=== PATIENT | male | born 1945 | race Caucasian/White ===

== ENCOUNTER 2017-07-18 11:16 | Day surgery (SDC) | payer MEDICARE, BC ==
[2017-07-18 12:39] LABS: BASOPHILS 0.3 % (0-2); EOSINOPHILS 4.7 % (0-7); HEMATOCRIT 38.7 % (42.0-54.0); HEMOGLOBIN 13.7 g/dL (13.5-17.5); LYMPHOCYTES 29.7 % (15-50); MCH 33.2 pg (26.0-34.0); MCHC 35.4 g/dL (31.0-37.0); MCV 93.7 fL (80.0-100.0); MEAN PLATELET VOLUME 9.6 fL (7.4-10.4); MONOCYTES 11.3 % (2-11); PLATELET COUNT 71 10x3/uL (130-400); RBC 4.13 10x6/uL (4.20-6.10); RDW 12.8 % (11.5-14.5); WBC 3.4 10x3/uL (4.8-10.8)
[2017-07-18 12:51] LABS: APTT 28.4 SECONDS (22.8-39.4)
[2017-07-18 12:53] LABS: INR 1.05 (0.85-1.17); PROTIME 13.5 SECONDS (11.6-15.0)
[2017-07-18 13:00] LABS: PLATELET ESTIMATE DECREASED
[2017-07-18 13:03] LABS: CALC OSMOLALITY 279 mosm/kg (275-300); CALCIUM 8.7 mg/dL (8.5-10.1); CARBON DIOXIDE 25.8 mmol/L (21.0-32.0); CHLORIDE - SERUM 102 mmol/L (98-107); CREATININE - SERUM 0.7 mg/dL (0.6-1.3); GLUCOSE 214 mg/dL (74-106); POTASSIUM - SERUM 3.8 mmol/L (3.5-5.1); SODIUM 137 mmol/L (136-145); UREA NITROGEN 13 mg/dL (7-18); eGFR NON AFRICAN AMERICAN > 90 mL/min (90-120)
[2017-07-18] MEDS ORDERED: GLUCOPHAGE1000 MG PO (14:18)
[2017-07-18] MEDS ORDERED: PROTONIX40 MG PO (14:19)
[2017-07-18] MEDS ORDERED: CELEXA40 MG PO (14:19)
[2017-07-18] MEDS ORDERED: JANUVIA100 MG PO (14:20)
[2017-07-18] MEDS ORDERED: ARICEPT5 MG PO (14:20)
[2017-07-18] MEDS ORDERED: COREG12.5 MG PO (14:20)
[2017-07-18 14:32] VITALS: BP 133/79; BMI 28.7
--- NOTE | 2017-07-18 17:23 | NUR ---
1720 DISCHARGE INSTRUCTIONS COMPLETE. WENT OVER STRICT DIET FOR NEXT 4 DAYS. NO PRESSCRIPTION GIVEN. PT ESCORTED OUT BY SOPHY DOMINIQUE.
--- NOTE | 2017-07-27 14:40 | OP ---
PATIENT NAME: ZAYNAB COVARRUBIAS MEDICAL RECORD: [id number] :46 [facility] DATE: SURGEON: PIERRE BARNHART DO DATE OF OPERATION: 07/18/2017 PROCEDURES: EGD with biopsies and variceal banding. INDICATIONS FOR PROCEDURE: Cirrhosis. SCOPE: Olympus video gastroscope. MEDICATIONS: Propofol 450 mg IV per anesthesia. ESTIMATED BLOOD LOSS: Minimal. COMPLICATIONS: None. FINDINGS: Informed consent was given. The patient was made comfortable with the above medication. After reaching an adequate level of sedation by slow IV push, the patient was placed on his left side. The endoscope was then advanced under direct visualization through the mouth to the second portion of the duodenum. In the middle and distal esophagus, there was evidence of grade III esophageal varices without bleeding stigmata. At the GE junction, there was some evidence of some reflux esophagitis without bleeding or ulcerations. The endoscope was advanced beyond the GE junction into the stomach and retroflexed to view the cardia which appeared normal. Throughout the entire stomach, there was diffuse portal hypertensive gastropathy of a moderate degree. There was some granularity and erythema throughout the entire stomach consistent with possible gastritis. A single biopsy was taken to submit for histology and to look for H. pylori. The endoscope was advanced beyond the pylorus into the duodenum where there was some evidence of portal hypertensive duodenopathy and duodenitis. The endoscope was removed from the patient and fitted with a banding device to band the esophageal varices. It was placed back through the mouth under direct visualization and advanced down to the GE junction. Three bands were placed in total over segment of varices successfully. The endoscope was then withdrawn from the patient. The patient tolerated the procedure well and there were no complications. IMPRESSION: 1. Grade III esophageal varices without bleeding stigmata, status post banding times 3. 2. Esophagitis involving the gastroesophageal junction. 3. Portal hypertensive gastropathy. 4. Gastritis. 5. Portal hypertensive duodenopathy and duodenitis. PLAN AND RECOMMENDATIONS: 1. Discharge home when recovery parameters are met. 2. Follow up biopsy specimen results. 3. Change diet to liquids times 48 hours followed by soft diet times 48 hours followed by regular diet thereafter. 4. Continue current medications including Protonix 40 mg daily. 5. Repeat upper endoscopy in 4 weeks for repeat banding if indicated. TRANSINT:[id number] Voice Confirmation ID: [id number] DOCUMENT ID: [id number] OPERATIVE REPORT [id number] ZAYNAB COVARRUBIAS NATHAN A DO at 1440 CC: [id number] DICTATION DATE: 07/18/17 162 RN CLINICAL DOCUMENTATION SPECIALIST: 07/18/171929 [facility] 07/18/[address] [facility] [address] [place] [id number]
== END 2017-07-18 17:20 | disposition home or self-care (01) ==
LOC: D.OPS 11:16 → D.LAB 11:16 → D.OPS 17:20
PROVIDERS: Anesthesiology
DX: K74.60 Unspecified cirrhosis of liver (principal); I85.10 Secondary esophageal varices without bleeding; K20.9 Esophagitis, unspecified; K29.70 Gastritis, unspecified, without bleeding; K76.6 Portal hypertension; K31.89 Other diseases of stomach and duodenum; Z01.812 Encounter for preprocedural laboratory examination

== ENCOUNTER → 2017-08-16 09:58 | Outpatient (CLI) | payer MEDICARE, BC ==
[2017-07-18 14:32] VITALS: BMI 28.7
[~2017-08-16 09:58] MED LIST: ARICEPT5 MG PO; CELEXA40 MG PO; COREG12.5 MG PO; FLUTICASONE PRO16 GM NASAL; GLUCOPHAGE1000 MG PO; JANUVIA100 MG PO; PROTONIX40 MG PO
[2017-08-16 11:16] LABS: % SATURATION 24 % (15-55); IRON 94 ug/dl (35-150); TOTAL IRON BIND CAPACITY 391 ug/dl (260-445); UNSAT IRON BIND CAPACITY 297 ug/dl (150-375)
[2017-08-16 11:25] LABS: ALBUMIN 3.7 g/dL (3.4-5.0); BILIRUBIN - DIRECT 0.38 mg/dL (0.00-0.30); BILIRUBIN - INDIRECT 1.35 mg/dL (0.00-1.00); BILIRUBIN - TOTAL 1.73 mg/dL (0.2-1.3); CHOL - HDL RATIO 3.6 ratio (2.3-4.9); LDL-HDL RATIO 2.1 ratio (1.5-3.5); PROTEIN - SERUM 7.2 g/dL (6.4-8.2)
[2017-08-17 08:20] LABS: FOLATE (FOLIC ACID) - SERUM 17.4 ng/mL (>3.0)
[2017-08-17 11:19] LABS: HAPTOGLOBIN 89 mg/dL (34-200)
[2017-08-17 11:19] LABS: HEPATITIS C ANTIBODY 0.2 (0.0-0.9)
[2017-08-17 13:18] LABS: ALPHA FETOPROTEIN -(TUMOR MRK) 5.6 ng/mL (0.0-8.3); ANA REFLEX - DIRECT Negative (Negative)
[2017-08-18 14:21] LABS: MITOCHONDRIAL ANTIBODY 5.4 Units (0.0-20.0); SMOOTH MUSCLE ABS (ACTIN) 6 Units (0-19)
== END | disposition home or self-care (01) ==
LOC: D.LAB 08:15
PROVIDERS: Internal Medicine Gastroenterology
DX: K74.60 Unspecified cirrhosis of liver (principal); R16.1 Splenomegaly, not elsewhere classified; D69.6 Thrombocytopenia, unspecified

== ENCOUNTER 2017-09-05 08:22 | Day surgery (SDC) | payer MEDICARE, BC ==
[~2017-09-05] VITALS: Ht 177.8 cm; Wt 90.9 kg
[~2017-09-05 08:22] MED LIST changes: -FLUTICASONE PRO16 GM NASAL
[2017-09-05] MEDS ORDERED: FLUTICASONE PRO16 GM NASAL (09:17)
[2017-09-05 09:22] LABS: BASOPHILS 0 % (0-2); EOSINOPHILS 4.8 % (0-7); HEMATOCRIT 40.4 % (42.0-54.0); HEMOGLOBIN 13.9 g/dL (13.5-17.5); LYMPHOCYTES 23.5 % (15-50); MCH 32.7 pg (26.0-34.0); MCHC 34.4 g/dL (31.0-37.0); MCV 95.1 fL (80.0-100.0); MEAN PLATELET VOLUME 9.3 fL (7.4-10.4); MONOCYTES 15.4 % (2-11); NEUTROPHILS 56.3 % (40-80); PLATELET COUNT 67 10x3/uL (130-400); RBC 4.25 10x6/uL (4.20-6.10); RDW 12.9 % (11.5-14.5); WBC 2.7 10x3/uL (4.8-10.8)
[2017-09-05 09:24] VITALS: BP 127/75; Ht 177.8 cm; Wt 90.9 kg
[2017-09-05 09:42] LABS: CALC OSMOLALITY 279 mosm/kg (275-300); CARBON DIOXIDE 24.7 mmol/L (21.0-32.0); CHLORIDE - SERUM 102 mmol/L (98-107); CREATININE - SERUM 0.8 mg/dL (0.6-1.3); GLUCOSE 269 mg/dL (74-106); POTASSIUM - SERUM 3.8 mmol/L (3.5-5.1); SODIUM 136 mmol/L (136-145); UREA NITROGEN 11 mg/dL (7-18); eGFR NON AFRICAN AMERICAN > 90 mL/min (90-120)
--- NOTE | 2017-09-05 16:47 | NUR ---
1145-RECD FROM GI LAB. ALERT. IV PATENT. RESP WITH EASE 1200-FULL LIQUIDS SERVED. DR BARNHART IN TO SEE PATIENT AND REPORT FINDINGS. 1245-IV D/C. DRESSED. DISCHARGE INSTRUCTIONS REVIEWED. 1300-D/C VIA WHEELCHAIR WITH OVEN TECHNICIAN.
--- NOTE | 2017-09-06 11:02 | OP ---
PATIENT NAME: ZAYNAB COVARRUBIAS MEDICAL RECORD: [id number] :46 LOCATION:D.[facility] ADMISSION DATE: SURGEON: PIERRE BARNHART DO DATE OF OPERATION: 09/05/2017 PROCEDURE: EGD. INDICATION FOR PROCEDURE: Surveillance of esophageal varices. SCOPE: Olympus video gastroscope. MEDICATIONS: Propofol given per anesthesia. ESTIMATED BLOOD LOSS: None. COMPLICATIONS: None. FINDINGS: Informed consent was given. The patient was made comfortable with the above medication. After reaching an adequate level of sedation by slow IV push, the patient was placed on his left side. The endoscope was then advanced under direct visualization through the mouth to the second portion of the duodenum. In the esophagus, there was evidence of grade II to grade III esophageal varices without bleeding stigmata. Sites of previous banding were identified. The vessels appeared more decompressed than his last EGD on July 18 where 3 bands were placed. It was determined based on the size and the appearance of the current varices that no bands would be placed today. At the GE junction, there was mild evidence of LA class A reflux-induced esophagitis. The endoscope was advanced beyond the GE junction and retroflexed to view the fundus and cardia. There were no obvious gastric varices present. Throughout the entire stomach and small bowel, there was extensive lvecxhit-tw-hgojji portal hypertensive gastropathy and duodenopathy. There were no ulcers or other abnormalities visualized. The endoscope was withdrawn from the patient. The patient tolerated the procedure well and there were no complications. IMPRESSION: 1. Grade II to grade III esophageal varices without bleeding stigmata. No bands placed on today's examination. 2. LA class A reflux-induced esophagitis. 2. Portal hypertensive gastropathy. 3. Portal hypertensive duodenopathy. PLAN AND RECOMMENDATIONS: 1. Discharge home when recovery parameters are met. 2. Continue current diet. 3. Continue current medications. 4. Recall upper endoscopy in one year for continued surveillance of esophageal varices. TRANSINT:[id number] Voice Confirmation ID: [id number] DOCUMENT ID: [id number] OPERATIVE REPORT [id number] ZAYNAB COVARRUBIAS PIERRE BARNHART DO at 1102 CC: [id number] DICTATION DATE: 09/05/17 112 [place] TECHNICIAN: 09/05/17 1256 [facility] 09/05/17 [facility] [address] [place] [address]
== END 2017-09-05 13:00 | disposition home or self-care (01) ==
LOC: D.OPS 08:22
PROVIDERS: Anesthesiology
DX: I85.00 Esophageal varices without bleeding (principal); K21.9 Gastro-esophageal reflux disease without esophagitis; I10 Essential (primary) hypertension; E11.9 Type 2 diabetes mellitus without complications; G47.30 Sleep apnea, unspecified; Z01.812 Encounter for preprocedural laboratory examination

== ENCOUNTER → 2017-10-13 08:37 | Outpatient (CLI) | payer MEDICARE, BC ==
[2017-09-05 09:24] VITALS: BMI 28.7
[~2017-10-13 08:37] MED LIST changes: +FLUTICASONE PRO16 GM NASAL
[2017-10-13 09:45] LABS: ALBUMIN 3.4 g/dL (3.4-5.0); BILIRUBIN - DIRECT 0.31 mg/dL (0.00-0.30); BILIRUBIN - INDIRECT 0.87 mg/dL (0.00-1.00); BILIRUBIN - TOTAL 1.18 mg/dL (0.2-1.3)
[2017-10-13 09:56] LABS: BASOPHILS 0.5 % (0-2); EOSINOPHILS 7.3 % (0-7); HEMOGLOBIN 13.3 g/dL (13.5-17.5); IMMATURE GRANULOCYTES 0.3 % (0-5); LYMPHOCYTES 22.8 % (15-50); MCH 32.9 pg (26.0-34.0); MCV 94.1 fL (80.0-100.0); MEAN PLATELET VOLUME 9.6 fL (7.4-10.4); MONOCYTES 10.1 % (2-11); RBC 4.04 10x6/uL (4.20-6.10); WBC 3.9 10x3/uL (4.8-10.8)
[2017-10-13 10:29] LABS: PLATELET COUNT 84 10x3/uL (130-400)
[2017-10-13 10:44] LABS: PLATELET ESTIMATE NORMAL; PLATELET MORPHOLOGY NORMAL PLT MORPH
== END | disposition home or self-care (01) ==
LOC: D.US 08:37
PROVIDERS: Internal Medicine Gastroenterology
DX: K74.60 Unspecified cirrhosis of liver (principal); R16.1 Splenomegaly, not elsewhere classified; D69.6 Thrombocytopenia, unspecified

== ENCOUNTER → 2018-03-14 08:41 | Outpatient (CLI) | payer MEDICARE, BC ==
[2017-09-05 09:24] VITALS: BMI 28.7
[2018-03-14 09:30] LABS: BASOPHILS 0.3 % (0-2); EOSINOPHILS 2.9 % (0-7); HEMOGLOBIN 13.1 g/dL (13.5-17.5); IMMATURE GRANULOCYTES 0.3 % (0-5); LYMPHOCYTES 19.6 % (15-50); MCH 32.8 pg (26.0-34.0); MCHC 34.5 g/dL (31.0-37.0); MCV 95.2 fL (80.0-100.0); MEAN PLATELET VOLUME 9.3 fL (7.4-10.4); MONOCYTES 11.8 % (2-11); NEUTROPHILS 65.1 % (40-80); RBC 3.99 10x6/uL (4.20-6.10); RDW 12.9 % (11.5-14.5); WBC 3.8 10x3/uL (4.8-10.8)
[2018-03-14 09:33] LABS: PLATELET COUNT 65 10x3/uL (130-400)
[2018-03-14 09:44] LABS: ALBUMIN 3.3 g/dL (3.4-5.0); BILIRUBIN - DIRECT 0.39 mg/dL (0.00-0.30); BILIRUBIN - INDIRECT 1.68 mg/dL (0.00-1.00); BILIRUBIN - TOTAL 2.07 mg/dL (0.2-1.3); PROTEIN - SERUM 6.9 g/dL (6.4-8.2)
== END | disposition home or self-care (01) ==
LOC: D.US 08:41
PROVIDERS: Internal Medicine Gastroenterology
DX: K74.60 Unspecified cirrhosis of liver (principal); D69.6 Thrombocytopenia, unspecified

== ENCOUNTER → 2018-04-14 09:03 | Outpatient (CLI) | payer MEDICARE, BC ==
[2017-09-05 09:24] VITALS: BMI 28.7
== END | disposition home or self-care (01) ==
LOC: D.LAB 04-11 14:00
DX: K74.60 Unspecified cirrhosis of liver (principal); E72.20 Disorder of urea cycle metabolism, unspecified; I85.00 Esophageal varices without bleeding; L29.9 Pruritus, unspecified

== ENCOUNTER → 2018-09-18 08:36 | Outpatient (CLI) | payer MEDICARE, BC ==
[2017-09-05 09:24] VITALS: BMI 28.7
[2018-09-18 09:47] LABS: BASOPHILS 0.3 % (0-2); EOSINOPHILS 5.2 % (0-7); HEMATOCRIT 39.7 % (42.0-54.0); HEMOGLOBIN 13.7 g/dL (13.5-17.5); IMMATURE GRANULOCYTES 0.3 % (0-5); LYMPHOCYTES 25.6 % (15-50); MCH 32.8 pg (26.0-34.0); MCHC 34.5 g/dL (31.0-37.0); MEAN PLATELET VOLUME 9.1 fL (7.4-10.4); MONOCYTES 10.8 % (2-11); NEUTROPHILS 57.8 % (40-80); PLATELET COUNT 78 10x3/uL (130-400); RBC 4.18 10x6/uL (4.20-6.10); RDW 13.2 % (11.5-14.5); WBC 3.4 10x3/uL (4.8-10.8)
[2018-09-18 10:02] LABS: ALBUMIN 3.6 g/dL (3.4-5.0); BILIRUBIN - DIRECT 0.37 mg/dL (0.00-0.30); BILIRUBIN - INDIRECT 1.59 mg/dL (0.00-1.00); BILIRUBIN - TOTAL 1.96 mg/dL (0.2-1.3); PROTEIN - SERUM 7.7 g/dL (6.4-8.2)
== END | disposition home or self-care (01) ==
LOC: D.US 08:30
PROVIDERS: Internal Medicine Gastroenterology
DX: K74.60 Unspecified cirrhosis of liver (principal); E72.20 Disorder of urea cycle metabolism, unspecified; I85.00 Esophageal varices without bleeding; L29.9 Pruritus, unspecified

== ENCOUNTER 2018-09-25 09:44 | Day surgery (SDC) | payer MEDICARE, BC ==
[~2018-09-25] VITALS: Ht 180.3 cm; Wt 88.2 kg
--- NOTE | ~2018-09-25 | OP ---
PATIENT NAME: ZAYNAB COVARRUBIAS MEDICAL RECORD: [id number] :46 [facility]: SURGEON: PIERRE BARNHART DO DATE OF OPERATION: 09/25/2018 PROCEDURE: EGD with biopsies and variceal ligation. SCOPE: Olympus video gastroscope. MEDICATIONS: Propofol 450 mg IV per anesthesia. ESTIMATED BLOOD LOSS: Minimal. COMPLICATIONS: None. FINDINGS: Informed consent was given. The patient was made comfortable with the above medication. After reaching an adequate level of sedation by slow IV push, the patient was placed on his left side. The endoscope was advanced under direct visualization through the mouth to the second portion of the duodenum. In the esophagus, there was evidence of grade II to grade III esophageal varices beginning with the middle third of the esophagus down to the distal third and GE junction. At the GE junction, there was some mild reflux changes, but this was not severe. The endoscope was advanced beyond the GE junction into the stomach and retroflexed to view the cardia, which appeared normal. Throughout the fundus and body of the stomach, there was diffuse severe portal hypertensive gastropathy. There was no active bleeding or lesions. In the antrum and prepyloric region, there was granularity and erythema consistent with gastritis. There was also a single gastric ulcer located in the prepyloric region. Random cold forceps biopsies were taken from both the antrum and the proximal body where the gastropathy was located. The specimens will be submitted for histopathology and to rule out the presence of H. pylori. The endoscope was advanced beyond the pylorus into the duodenum. The duodenum appeared normal down to the second portion. The endoscope was then withdrawn from the patient. The patient tolerated the procedure well and there were no complications. IMPRESSION: 1. Grade II to grade III esophageal varices without bleeding stigmata. Two bands were placed on these varices using the [employer] quick plate painter apprentice. 2. Portal hypertensive gastropathy in a diffuse pattern in the fundus and proximal stomach. 3. Gastritis. 4. Peptic ulcer disease/gastric ulcer. PLAN AND RECOMMENDATIONS: 1. Discharge home when recovery parameters are met. 2. Follow up biopsy specimen results. 3. Continue current diet. 4. Continue current medications. 5. A prescription will be provided for omeprazole 40 mg daily. 6. Repeat EGD in 4 weeks for continued banding of esophageal varices until eradication. TRANSINT:[id number] Voice Confirmation ID: [id number] DOCUMENT ID: [id number] OPERATIVE REPORT [id number] ZAYNAB COVARRUBIAS,PIERRE Arevalo DO at 1554 CC: [id number] DICTATION DATE: 09/25/181216 HEEL CUTTER: 09/25/18 1315 [facility] 09/25/18 [place] [id number]
[2018-09-25 11:05] VITALS: Ht 180.3 cm; Wt 88.2 kg
[2018-09-25] MEDS ORDERED: XIFAXAN550 MG PO (11:09)
[2018-09-25] MEDS ORDERED: RAZADYNE ER8 MG PO (11:10)
[2018-09-25] MEDS ORDERED: VITAMIN D31000 UNIT PO (11:11)
[2018-09-25] MEDS ORDERED: VITAMIN B-121000 MCG PO (11:11)
[2018-09-25] MEDS ORDERED: ATARAX 25 MG TA25 MG PO (11:12)
[2018-09-25] MEDS ORDERED: MOBIC7.5 MG PO (11:12)
[2018-09-25] MEDS ORDERED: IBUPROFEN200 MG PO (11:13)
[2018-09-25] MEDS ORDERED: IMODIUM2 MG PO (11:14)
[2018-09-25 11:45] LABS: HEMATOCRIT 39.2 % (42.0-54.0); HEMOGLOBIN 13.7 g/dL (13.5-17.5); MCH 33.1 pg (26.0-34.0); MCHC 34.9 g/dL (31.0-37.0); MCV 94.7 fL (80.0-100.0); MEAN PLATELET VOLUME 9.6 fL (7.4-10.4); PLATELET COUNT 82 10x3/uL (130-400); RBC 4.14 10x6/uL (4.20-6.10); RDW 13.1 % (11.5-14.5); WBC 3.5 10x3/uL (4.8-10.8)
[2018-09-25 11:48] LABS: CALC OSMOLALITY 280 mosm/kg (275-300); CALCIUM 9.2 mg/dL (8.5-10.1); CARBON DIOXIDE 29.6 mmol/L (21.0-32.0); CHLORIDE - SERUM 100 mmol/L (98-107); CREATININE - SERUM 0.7 mg/dL (0.6-1.3); POTASSIUM - SERUM 4.1 mmol/L (3.5-5.1); SODIUM 137 mmol/L (136-145); UREA NITROGEN 15 mg/dL (7-18); eGFR NON AFRICAN AMERICAN > 90 mL/min (90-120)
[2018-09-25 11:49] LABS: GLUCOSE 215 mg/dL (74-106)
[2018-09-25 12:18] LABS: PLATELET ESTIMATE DECREASED
== END 2018-09-25 13:19 | disposition home or self-care (01) ==
LOC: D.OPS 09:44
PROVIDERS: Anesthesiology
DX: I85.00 Esophageal varices without bleeding (principal); K76.6 Portal hypertension; K31.89 Other diseases of stomach and duodenum; K25.9 Gastric ulcer, unspecified as acute or chronic, without hemorrhage or perforation; Z01.812 Encounter for preprocedural laboratory examination

== ENCOUNTER → 2018-11-29 14:39 | Outpatient (CLI) | payer MEDICARE, BC ==
[2018-09-25 11:05] VITALS: BMI 27.1
[~2018-11-29 14:39] MED LIST changes: +ATARAX 25 MG TA25 MG PO; +GLUCOTROL XL 1010 MG PO; +IBUPROFEN200 MG PO; +IMODIUM2 MG PO; +MOBIC7.5 MG PO; +RAZADYNE ER8 MG PO; +VITAMIN B-121000 MCG PO; +VITAMIN D31000 UNIT PO; +XIFAXAN550 MG PO
== END | disposition home or self-care (01) ==
LOC: D.LAB 08:00
DX: I85.00 Esophageal varices without bleeding (principal); L29.9 Pruritus, unspecified; K74.60 Unspecified cirrhosis of liver

== ENCOUNTER 2018-12-06 05:58 | Day surgery (SDC) | payer MEDICARE, BC ==
[2018-11-29 15:16] LABS: BASOPHILS 0.3 % (0-2); HEMATOCRIT 37.7 % (42.0-54.0); IMMATURE GRANULOCYTES 0.3 % (0-5); LYMPHOCYTES 26.6 % (15-50); MCH 31.9 pg (26.0-34.0); MCHC 34.5 g/dL (31.0-37.0); MCV 92.4 fL (80.0-100.0); MEAN PLATELET VOLUME 9.6 fL (7.4-10.4); MONOCYTES 10.2 % (2-11); NEUTROPHILS 58.6 % (40-80); PLATELET COUNT 70 10x3/uL (130-400); RBC 4.08 10x6/uL (4.20-6.10); RDW 13.4 % (11.5-14.5); WBC 3.2 10x3/uL (4.8-10.8)
[2018-11-29 15:41] LABS: PLATELET ESTIMATE DECREASED
[~2018-12-06] VITALS: Ht 177.8 cm; Wt 90.0 kg
--- NOTE | ~2018-12-06 | OP ---
PATIENT NAME: ZAYNAB COVARRUBIAS MEDICAL RECORD: [id number] :46 LOCATION:D.OPS ADMISSION DATE: SURGEON: PIERRE BARNHART DO DATE OF OPERATION: 12/06/2018 PROCEDURE: EGD with variceal band ligation times 2. The patient's last variceal banding took place on 09/25/2018. SCOPE: Olympus video gastroscope. MEDICATIONS: Propofol 220 mg IV per anesthesia. ESTIMATED BLOOD LOSS: Minimal. COMPLICATIONS: None. FINDINGS: Informed consent was given. The patient was made comfortable with the above medication. After reaching an adequate level of sedation by slow IV push, the patient was placed on his left side. The endoscope was advanced under direct visualization through the mouth to the second portion of the duodenum with ease. The upper third of the esophagus appeared normal. In the middle and distal thirds of the esophagus, there were grade II to grade III esophageal varices without bleeding stigmata. Using a [employer] speed resource technician, 2 of these varices were ligated at the 5 o'clock and 7 o'clock position successfully. At the GE junction, there was evidence of LA class A reflux-induced esophagitis. The endoscope was advanced beyond the GE junction in the stomach and retroflexed to view the cardia and fundus. There was no hiatal hernia appreciated. The endoscope was advanced down into the body and antrum of the stomach. There was diffuse moderate to severe portal hypertensive gastropathy present. There was no bleeding in the stomach. The previously identified ulcers have resolved and are no longer present. The endoscope was advanced beyond the pylorus into the duodenum. The entire examined duodenum appeared normal. The endoscope was withdrawn from the patient. The patient tolerated the procedure well and there were no complications. IMPRESSION: 1. Grade II to grade III esophageal varices without bleeding stigmata, banded times 2. 2. LA class A reflux-induced esophagitis. 3. Moderate to severe portal hypertensive gastropathy. PLAN AND RECOMMENDATIONS: 1. Discharge home when recovery parameters are met. 2. Continue current diet. 3. Continue current medications. 4. Recall EGD in approximately 4 weeks for further banding as indicated of esophageal varices. TRANSINT:[id number] Voice Confirmation ID: [id number] DOCUMENT ID: [id number] OPERATIVE REPORT [id number] ZAYNAB COVARRUBIASPIERRE JACKSON DO CC: [id number] DICTATION DATE: 12/06/18802 SLEEVE MACHINE TENDER: 12/06/18823 [facility] [address] [place] [address]
[~2018-12-06 05:58] MED LIST changes: -GLUCOTROL XL 1010 MG PO
[2018-12-06 06:41] LABS: CALC OSMOLALITY 288 mosm/kg (275-300); CARBON DIOXIDE 23.9 mmol/L (21.0-32.0); CHLORIDE - SERUM 104 mmol/L (98-107); CREATININE - SERUM 0.8 mg/dL (0.6-1.3); GLUCOSE 178 mg/dL (74-106); POTASSIUM - SERUM 4.2 mmol/L (3.5-5.1); SODIUM 141 mmol/L (136-145); UREA NITROGEN 23 mg/dL (7-18); eGFR NON AFRICAN AMERICAN > 90 mL/min (90-120)
[2018-12-06] MEDS ORDERED: GLUCOTROL XL 1010 MG PO (06:45)
[2018-12-06 06:53] VITALS: Ht 177.8 cm; Wt 90.0 kg
[2018-12-06 07:16] LABS: HEMATOCRIT 39.7 % (42.0-54.0); HEMOGLOBIN 13.6 g/dL (13.5-17.5); MCH 32.1 pg (26.0-34.0); MCHC 34.3 g/dL (31.0-37.0); MCV 93.6 fL (80.0-100.0); MEAN PLATELET VOLUME 9.9 fL (7.4-10.4); PLATELET COUNT 69 10x3/uL (130-400); RBC 4.24 10x6/uL (4.20-6.10); RDW 13.6 % (11.5-14.5); WBC 3.2 10x3/uL (4.8-10.8)
[2018-12-06 07:50] LABS: PLATELET ESTIMATE DECREASED
== END 2018-12-06 08:45 | disposition home or self-care (01) ==
LOC: D.OPS 05:58
PROVIDERS: Anesthesiology; ATTEND Internal Medicine Gastroenterology
DX: I85.00 Esophageal varices without bleeding (principal); K21.0 Gastro-esophageal reflux disease with esophagitis; K76.6 Portal hypertension; K31.89 Other diseases of stomach and duodenum; Z01.812 Encounter for preprocedural laboratory examination

== ENCOUNTER 2019-02-26 08:58 | Day surgery (SDC) | payer MEDICARE, BC ==
[~2019-02-26] VITALS: Ht 177.8 cm; Wt 90.0 kg
[~2019-02-26 08:58] MED LIST changes: +GLUCOTROL XL 1010 MG PO
[2019-02-26 09:52] LABS: CALC OSMOLALITY 273 mosm/kg (275-300); CALCIUM 8.7 mg/dL (8.5-10.1); CHLORIDE - SERUM 104 mmol/L (98-107); CREATININE - SERUM 0.8 mg/dL (0.6-1.3); GLUCOSE 217 mg/dL (74-106); POTASSIUM - SERUM 3.8 mmol/L (3.5-5.1); SODIUM 132 mmol/L (136-145); UREA NITROGEN 17 mg/dL (7-18); eGFR NON AFRICAN AMERICAN > 90 mL/min (90-120)
[2019-02-26 09:56] LABS: HEMATOCRIT 39.3 % (42.0-54.0); HEMOGLOBIN 13.6 g/dL (13.5-17.5); MCH 32.5 pg (26.0-34.0); MCHC 34.6 g/dL (31.0-37.0); MCV 93.8 fL (80.0-100.0); MEAN PLATELET VOLUME 9.7 fL (7.4-10.4); RBC 4.19 10x6/uL (4.20-6.10); RDW 13.6 % (11.5-14.5); WBC 3.3 10x3/uL (4.8-10.8)
[2019-02-26 10:50] VITALS: BP 140/71; Ht 177.8 cm; Wt 90.0 kg
--- NOTE | 2019-02-26 13:47 | NUR ---
1340 DR[address] BARNHART ROUND 1345 [place] ADA DIET SERVED.
--- NOTE | 2019-02-26 14:47 | OP ---
PATIENT NAME: ZAYNAB COVARRUBIAS MEDICAL RECORD: [id number] :46 LOCATION:[facility] ADMISSION DATE: SURGEON: PIERRE BARNHART DO DATE OF OPERATION: 02/26/2019 PROCEDURE: EGD. INDICATIONS FOR PROCEDURE: Esophageal varices surveillance. The patient's last upper endoscopy was performed on 12/06/2018 with 2 bands placed at that time. SCOPE: Olympus video gastroscope. MEDICATIONS: Propofol 250 mg IV per anesthesia. ESTIMATED BLOOD LOSS: None. COMPLICATIONS: None. FINDINGS: Informed consent was given. The patient was made comfortable with the above medication. After reaching an adequate level of sedation by slow IV push, the patient was placed on his left side. The endoscope was advanced under direct visualization through the mouth to the second portion of the duodenum with ease. The upper esophagus appeared normal. In the middle and distal esophagus, there were grade I to grade II esophageal varices without bleeding stigmata. No bands were placed on today's examination. At the GE junction, there was evidence of mild LA class A reflux-induced esophagitis. The endoscope was advanced beyond the GE junction into the stomach and retroflexed to view the cardia and fundus. There were no obvious gastric varices. Throughout the entire stomach, there was moderate to severe portal hypertensive gastropathy present. The endoscope was advanced beyond the pylorus into the duodenum where there appeared to be some inhl-jk-wvgozuul portal hypertensive duodenitis. The endoscope was withdrawn from the patient. The patient tolerated the procedure well and there were no complications. IMPRESSION: 1. Grade I to II esophageal varices. 2. LA class A reflux-induced esophagitis. 3. Portal hypertensive gastropathy and duodenitis. PLAN AND RECOMMENDATIONS: 1. Discharge home when recovery parameters are met. 2. Continue current diet. 3. Continue current medications. 4. Recall EGD in 1 year for variceal surveillance. TRANSINT:[id number] Voice Confirmation ID: [id number] DOCUMENT ID: [id number] OPERATIVE REPORT [id number] ZAYNAB COVARRUBIAS PIERRE BARNHART DO at 1449 CC: [id number] DICTATION DATE: 02/26/[address] MAGISTRATE: 02/26/19 1336 [facility] 02/26/19 [place] [id number]
== END 2019-02-26 14:07 | disposition home or self-care (01) ==
LOC: D.OPS 08:58
PROVIDERS: Anesthesiology; ATTEND Internal Medicine Gastroenterology
DX: K76.6 Portal hypertension (principal); K31.89 Other diseases of stomach and duodenum; I85.10 Secondary esophageal varices without bleeding; K21.0 Gastro-esophageal reflux disease with esophagitis; K29.80 Duodenitis without bleeding; Z01.812 Encounter for preprocedural laboratory examination

== ENCOUNTER → 2019-03-30 08:33 | Outpatient (CLI) | payer MEDICARE, BC ==
[2019-02-26 10:50] VITALS: BMI 28.4
[~2019-03-30 08:33] MED LIST changes: +LOMOTIL 2.5-0.1 EAC1 PO
[2019-03-30 09:03] LABS: BASOPHILS 0.2 % (0-2); EOSINOPHILS 3.1 % (0-7); HEMATOCRIT 37.5 % (42.0-54.0); HEMOGLOBIN 13.3 g/dL (13.5-17.5); IMMATURE GRANULOCYTES 0.2 % (0-5); LYMPHOCYTES 19.5 % (15-50); MCH 32.4 pg (26.0-34.0); MCHC 35.5 g/dL (31.0-37.0); MCV 91.5 fL (80.0-100.0); MEAN PLATELET VOLUME 9.6 fL (7.4-10.4); MONOCYTES 16.1 % (2-11); NEUTROPHILS 60.9 % (40-80); PLATELET COUNT 70 10x3/uL (130-400); RDW 13.5 % (11.5-14.5); WBC 5.5 10x3/uL (4.8-10.8)
[2019-03-30 09:14] LABS: INR 1.16 (0.85-1.17); PROTIME 14.3 SECONDS (11.6-15.0)
[2019-03-30 09:33] LABS: ALBUMIN 3.4 g/dL (3.4-5.0); BILIRUBIN - DIRECT 0.3 mg/dL (0.00-0.30); BILIRUBIN - INDIRECT 2.79 mg/dL (0.00-1.00); BILIRUBIN - TOTAL 3.09 mg/dL (0.2-1.3); PROTEIN - SERUM 7.1 g/dL (6.4-8.2)
[2019-03-30 10:48] LABS: PLATELET ESTIMATE DECREASED
== END | disposition home or self-care (01) ==
LOC: D.US 03-29 09:00 → D.LAB 03-29 09:30 → D.US 08:33
PROVIDERS: ATTEND Internal Medicine Gastroenterology
DX: K74.60 Unspecified cirrhosis of liver (principal)

== ENCOUNTER 2019-03-31 12:01 | Emergency (ER) | payer MEDICARE, BC ==
[~2019-03-31] VITALS: Ht 177.8 cm; Wt 88.6 kg
[~2019-03-31 12:01] MED LIST changes: -LOMOTIL 2.5-0.1 EAC1 PO
[2019-03-31 12:04] VITALS: Ht 177.8 cm; Wt 88.6 kg
[2019-03-31 12:49] LABS: BASOPHILS 0.3 % (0-2); EOSINOPHILS 3.3 % (0-7); HEMATOCRIT 33.9 % (42.0-54.0); HEMOGLOBIN 12.3 g/dL (13.5-17.5); IMMATURE GRANULOCYTES 0.3 % (0-5); LYMPHOCYTES 24.3 % (15-50); MCH 32.9 pg (26.0-34.0); MCHC 36.3 g/dL (31.0-37.0); MCV 90.6 fL (80.0-100.0); MEAN PLATELET VOLUME 9.2 fL (7.4-10.4); MONOCYTES 18.4 % (2-11); NEUTROPHILS 53.4 % (40-80); PLATELET COUNT 70 10x3/uL (130-400); RBC 3.74 10x6/uL (4.20-6.10); RDW 13.3 % (11.5-14.5)
[2019-03-31 12:52] LABS: WBC 3.9 10x3/uL (4.8-10.8)
[2019-03-31 13:03] LABS: ALKALINE PHOSPHATASE 103 U/L (46-116); ALT (SGPT) 29 U/L (10-68); AMYLASE - SERUM 31 U/L (25-115); CALC OSMOLALITY 274 mosm/kg (275-300); CALCIUM 8.3 mg/dL (8.5-10.1); CARBON DIOXIDE 21.4 mmol/L (21.0-32.0); CHLORIDE - SERUM 103 mmol/L (98-107); CREATININE - SERUM 0.9 mg/dL (0.6-1.3); GLUCOSE 179 mg/dL (74-106); LIPASE 182 U/L (73-393); POTASSIUM - SERUM 3.5 mmol/L (3.5-5.1); PROTEIN - SERUM 6.7 g/dL (6.4-8.2); SODIUM 135 mmol/L (136-145); UREA NITROGEN 15 mg/dL (7-18); eGFR NON AFRICAN AMERICAN 88 mL/min (90-120)
[2019-03-31 13:08] LABS: APPEARANCE CLEAR (CLEAR); BILIRUBIN NEGATIVE (NEGATIVE); COLOR YELLOW (YELLOW); GLUCOSE 500 mg/dL (NEGATIVE); KETONE NEGATIVE (NEGATIVE); NITRITE NEGATIVE (NEGATIVE); PROTEIN 1+ mg/dL (NEGATIVE); RED CELLS - URINE 0-5 /hpf (0-5); UROBILINOGEN NORMAL (NORMAL); WHITE CELLS - URINE 0-5 /hpf (0-5)
[2019-03-31 13:09] LABS: AMORPHOUS SEDIMENT <1+ /lpf (NONE SEEN); EPITHELIAL CELLS 0-5 /hpf (0-5)
[2019-03-31] MEDS ORDERED: LOMOTIL 2.5-0.1 EAC1 PO (13:22)
[2019-03-31 13:50] VITALS: BP 122/68
== END 2019-03-31 13:51 | disposition home or self-care (01) ==
LOC: D.ER 12:01
PROVIDERS: Emergency Medicine
DX: R19.7 Diarrhea, unspecified (principal); E11.9 Type 2 diabetes mellitus without complications

== ENCOUNTER → 2019-04-30 11:26 | Outpatient (CLI) | payer MEDICARE, BC ==
[2019-03-31 12:04] VITALS: BMI 28.0
[~2019-04-30 11:26] MED LIST changes: +LOMOTIL 2.5-0.1 EAC1 PO
[2019-04-30 13:00] LABS: ALBUMIN 3.5 g/dL (3.4-5.0); ALKALINE PHOSPHATASE 115 U/L (46-116); ALT (SGPT) 28 U/L (10-68); BILIRUBIN - TOTAL 2.46 mg/dL (0.2-1.3); CALC OSMOLALITY 294 mosm/kg (275-300); CALCIUM 8.4 mg/dL (8.5-10.1); CARBON DIOXIDE 25.3 mmol/L (21.0-32.0); CHLORIDE - SERUM 102 mmol/L (98-107); CREATININE - SERUM 0.9 mg/dL (0.6-1.3); PROTEIN - SERUM 6.7 g/dL (6.4-8.2); SODIUM 138 mmol/L (136-145); UREA NITROGEN 17 mg/dL (7-18); eGFR NON AFRICAN AMERICAN 88 mL/min (90-120)
[2019-04-30 13:08] LABS: GLUCOSE 411 mg/dL (74-106)
== END | disposition home or self-care (01) ==
LOC: D.LAB 11:26
PROVIDERS: ATTEND Internal Medicine Gastroenterology
DX: E80.6 Other disorders of bilirubin metabolism (principal)

== ENCOUNTER → 2019-05-07 12:02 | Outpatient (CLI) | payer MEDICARE, BC ==
[2019-03-31 12:04] VITALS: BMI 28.0
== END | disposition home or self-care (01) ==
LOC: D.LAB 12:02
PROVIDERS: ATTEND Internal Medicine Gastroenterology
DX: K74.60 Unspecified cirrhosis of liver (principal)

== ENCOUNTER → 2019-09-11 09:32 | Outpatient (CLI) | payer MEDICARE, BC ==
[2019-03-31 12:04] VITALS: BMI 28.0
[2019-09-11 10:43] LABS: HEMOGLOBIN 13.5 g/dL (13.5-17.5); MCH 33.1 pg (26.0-34.0); MCHC 33.8 g/dL (31.0-37.0); PLATELET COUNT 64 10x3/uL (130-400); RBC 4.08 10x6/uL (4.20-6.10); RDW 13.6 % (11.5-14.5); WBC 2.8 10x3/uL (4.8-10.8)
[2019-09-11 10:55] LABS: INR 1.07 (0.85-1.17); PROTIME 13.4 SECONDS (11.6-15.0)
[2019-09-11 10:59] LABS: ALBUMIN 3.5 g/dL (3.4-5.0); BILIRUBIN - DIRECT 0.41 mg/dL (0.00-0.30); BILIRUBIN - INDIRECT 1.57 mg/dL (0.00-1.00); BILIRUBIN - TOTAL 1.98 mg/dL (0.2-1.3)
[2019-09-11 14:02] LABS: ANISOCYTOSIS 1+; EOSINOPHILS 10 % (0-7); LYMPHOCYTES 20 % (15-50); MONOCYTES 19 % (2-11); NEUTROPHILS 48 % (40-80); PLATELET ESTIMATE DECREASED
[2019-09-11 14:03] LABS: ROULEAUX OCC
== END | disposition home or self-care (01) ==
LOC: D.LAB 09:32 → D.US 10:00
PROVIDERS: ATTEND Internal Medicine Gastroenterology
DX: K74.69 Other cirrhosis of liver (principal)

== ENCOUNTER → 2019-10-17 09:12 | Outpatient (CLI) | payer MEDICARE, BC ==
[2019-03-31 12:04] VITALS: BMI 28.0
[2019-10-17 10:05] LABS: CALC OSMOLALITY 284 mosm/kg (275-300); CALCIUM 8.9 mg/dL (8.5-10.1); CARBON DIOXIDE 27.5 mmol/L (21.0-32.0); CHLORIDE - SERUM 103 mmol/L (98-107); CREATININE - SERUM 0.8 mg/dL (0.6-1.3); POTASSIUM - SERUM 4.2 mmol/L (3.5-5.1); SODIUM 139 mmol/L (136-145); UREA NITROGEN 17 mg/dL (7-18); eGFR NON AFRICAN AMERICAN > 90 mL/min (90-120)
[2019-10-17 10:06] LABS: GLUCOSE 196 mg/dL (74-106)
== END | disposition home or self-care (01) ==
LOC: D.MRI 09:12
PROVIDERS: ATTEND Internal Medicine Gastroenterology
DX: K74.60 Unspecified cirrhosis of liver (principal)

== ENCOUNTER 2019-12-10 05:45 | Day surgery (SDC) | payer MEDICARE, BC ==
[~2019-12-10] VITALS: Ht 177.8 cm; Wt 90.0 kg
[2019-12-10 06:10] LABS: HEMATOCRIT 40.4 % (42.0-54.0); HEMOGLOBIN 14.1 g/dL (13.5-17.5); MCH 32.8 pg (26.0-34.0); MCHC 34.9 g/dL (31.0-37.0); PLATELET COUNT 59 10x3/uL (130-400); RDW 13.4 % (11.5-14.5); WBC 3.6 10x3/uL (4.8-10.8)
[2019-12-10 06:24] LABS: CALC OSMOLALITY 280 mosm/kg (275-300); CALCIUM 9.4 mg/dL (8.5-10.1); CARBON DIOXIDE 24.8 mmol/L (21.0-32.0); CHLORIDE - SERUM 104 mmol/L (98-107); CREATININE - SERUM 0.9 mg/dL (0.6-1.3); GLUCOSE 170 mg/dL (74-106); SODIUM 138 mmol/L (136-145); UREA NITROGEN 16 mg/dL (7-18); eGFR NON AFRICAN AMERICAN 88 mL/min (90-120)
[2019-12-10 06:37] LABS: APTT 30.1 SECONDS (22.8-39.4); INR 1.11 (0.85-1.17); PROTIME 14.3 SECONDS (11.6-15.0)
[2019-12-10 06:55] VITALS: BP 135/69; Ht 177.8 cm; Wt 90.0 kg
[2019-12-10 11:12] LABS: PLATELET ESTIMATE DECREASED
--- NOTE | 2019-12-10 13:17 | NUR ---
0925 IV DC'D. CATHETER TIP INTACT. NO BLEEDING OR SWELLING AT IV SITE AFTER HOLDING PRESSURE. BANDAID APPLIED.
--- NOTE | 2019-12-11 16:37 | OP ---
PATIENT NAME: ZAYNAB COVARRUBIAS MEDICAL RECORD: [id number] :46 [facility] ADMISSION DATE: SURGEON: PIERRE BARNHART DO DATE OF OPERATION: 12/10/2019 PROCEDURE: Colonoscopy with polypectomy. INDICATIONS FOR PROCEDURE: Screening colonoscopy with a history of colon polyps. His last colonoscopy was greater than 5 years ago. SCOPE: Olympus video pediatric colonoscope. MEDICATIONS: Propofol 600 mg IV per anesthesia. WITHDRAWAL TIME: 18 minutes. ESTIMATED BLOOD LOSS: Minimal. COMPLICATIONS: None. FINDINGS: Informed consent was given. The patient was made comfortable with the above medication. After reaching an adequate level of sedation by slow IV push, the patient was placed on his left side. A digital rectal examination was performed and was normal. The endoscope was advanced under direct visualization through the rectum to the cecum, confirmed by the presence of the appendiceal orifice and ileocecal valve. The endoscope was slowly withdrawn and the mucosa was carefully examined. The prep quality was poor, but was able to be cleaned adequately for visualization of polyps. There was 1 polyp located in the ascending colon. It was a benign-appearing sessile polyp, which measured approximately 3-4 mm in diameter. It was removed using hot forceps. In the transverse colon, there were 3 separate polyps, which were benign-appearing and sessile. They ranged in size from 4-6 mm in diameter. They were all removed using a hot snare in one piece and completely retrieved. In the descending colon, there were 3 separate polyps, which were benign appearing and sessile. They ranged in size from 4-7 mm in diameter. They were all removed using a hot snare in one piece and completely retrieved. There was evidence of mild diverticulosis in the sigmoid colon. Retroflexion was performed in the rectum with visualization of a normal-appearing rectal wall. The endoscope was withdrawn from the patient. The patient tolerated the procedure well, and there were no complications. IMPRESSION: 1. Seven polyps as described above, removed using a combination of a hot snare and hot forceps. 2. Mild diverticulosis of the sigmoid colon. PLAN AND RECOMMENDATIONS: 1. Discharge home when recovery parameters are met. 2. Follow up biopsy specimen results. 3. High fiber diet. 4. Continue current medications. 5. Recall colonoscopy in 2 years. TRANSINT:[id number] Voice Confirmation ID: [id number] DOCUMENT ID: [id number] OPERATIVE REPORT [id number] ZAYNAB COVARRUBIAS NATHAN A DO at 1637 CC: [id number] DICTATION DATE: 12/10/19840 FORCE VARIATION EQUIPMENT TENDER: 12/10/19 1005 [facility] 12/10/19 [place] [id number] [place] [id number]
== END 2019-12-10 09:47 | disposition home or self-care (01) ==
LOC: D.OPS 05:45
PROVIDERS: Anesthesiology; ATTEND Internal Medicine Gastroenterology
DX: Z86.010 Personal history of colon polyps (principal); Z12.11 Encounter for screening for malignant neoplasm of colon; I85.00 Esophageal varices without bleeding; K74.60 Unspecified cirrhosis of liver; R16.1 Splenomegaly, not elsewhere classified

== ENCOUNTER → 2020-02-11 10:05 | Outpatient (CLI) | payer MEDICARE, BC ==
[2019-12-10 06:55] VITALS: BMI 28.4
[2020-02-11 10:55] LABS: ALBUMIN 3.3 g/dL (3.4-5.0); BILIRUBIN - DIRECT 0.42 mg/dL (0.00-0.30); BILIRUBIN - INDIRECT 2.36 mg/dL (0.00-1.00); BILIRUBIN - TOTAL 2.78 mg/dL (0.2-1.3); PROTEIN - SERUM 6.5 g/dL (6.4-8.2)
[2020-02-11 11:24] LABS: BASOPHILS 0.4 % (0-2); HEMATOCRIT 38.1 % (42.0-54.0); HEMOGLOBIN 12.9 g/dL (13.5-17.5); LYMPHOCYTES 24.5 % (15-50); MCH 33.2 pg (26.0-34.0); MCHC 33.9 g/dL (31.0-37.0); MCV 98.2 fL (80.0-100.0); MEAN PLATELET VOLUME 9.9 fL (7.4-10.4); MONOCYTES 12.3 % (2-11); NEUTROPHILS 57.8 % (40-80); PLATELET COUNT 68 10x3/uL (130-400); RBC 3.88 10x6/uL (4.20-6.10); RDW 13.7 % (11.5-14.5); WBC 2.6 10x3/uL (4.8-10.8)
[2020-02-11 11:48] LABS: INR 1.11 (0.85-1.17); PROTIME 14.2 SECONDS (11.6-15.0)
[2020-02-11 12:42] LABS: HYPOCHROMASIA OCC; PLATELET ESTIMATE DECREASED
== END | disposition home or self-care (01) ==
LOC: D.LAB 10:05 → D.US 10:30
PROVIDERS: ATTEND Internal Medicine Gastroenterology
DX: K74.60 Unspecified cirrhosis of liver (principal)

== ENCOUNTER 2020-06-09 10:36 | Day surgery (SDC) | payer MEDICARE, BC ==
[~2020-06-09] VITALS: Ht 177.8 cm; Wt 90.0 kg
[2020-06-09 11:39] LABS: HEMATOCRIT 38.9 % (42.0-54.0); HEMOGLOBIN 13.4 g/dL (13.5-17.5); MCH 33.6 pg (26.0-34.0); MCHC 34.4 g/dL (31.0-37.0); MCV 97.5 fL (80.0-100.0); PLATELET COUNT 59 10x3/uL (130-400); RBC 3.99 10x6/uL (4.20-6.10); RDW 13.5 % (11.5-14.5); WBC 3.1 10x3/uL (4.8-10.8)
[2020-06-09 11:47] LABS: APTT 28.2 SECONDS (22.8-39.4); INR 1.09 (0.85-1.17); PROTIME 14.1 SECONDS (11.6-15.0)
[2020-06-09 12:03] LABS: ALBUMIN 3.9 g/dL (3.4-5.0); ALKALINE PHOSPHATASE 88 U/L (30-120); ALT (SGPT) 32 U/L (10-68); BILIRUBIN - TOTAL 2.68 mg/dL (0.2-1.3); CALC OSMOLALITY 279 mosm/kg (275-300); CALCIUM 8.9 mg/dL (8.5-10.1); CARBON DIOXIDE 27.3 mmol/L (21.0-32.0); CHLORIDE - SERUM 103 mmol/L (98-107); CREATININE - SERUM 0.8 mg/dL (0.6-1.3); GLUCOSE 180 mg/dL (74-106); POTASSIUM - SERUM 4.3 mmol/L (3.5-5.1); PROTEIN - SERUM 6.8 g/dL (6.4-8.2); SODIUM 137 mmol/L (136-145); UREA NITROGEN 16 mg/dL (7-18); eGFR NON AFRICAN AMERICAN > 90 mL/min (90-120)
[2020-06-09] MEDS ORDERED: LEXAPRO20 MG PO (12:08)
[2020-06-09] MEDS ORDERED: IBUPROFEN400 MG PO (12:09)
[2020-06-09] MEDS ORDERED: FERROUS SULFAT325 MG PO (12:09)
[2020-06-09 12:16] VITALS: BP 134/66; Ht 177.8 cm; Wt 90.0 kg
--- NOTE | 2020-06-09 14:09 | NUR ---
1410 DR. BRONWYN ANDREWS.
[2020-06-09 14:12] LABS: PLATELET ESTIMATE DECREASED
--- NOTE | 2020-06-09 16:09 | NUR ---
6548 DR. BRONWYN ANDREWS DC INSTS REVIEWED VOICED UNDERSTANDING RELEASED IN WC
== END 2020-06-09 15:10 | disposition home or self-care (01) ==
LOC: D.OPS 10:36
PROVIDERS: Anesthesiology; ATTEND Internal Medicine Gastroenterology
DX: I85.00 Esophageal varices without bleeding (principal); K21.0 Gastro-esophageal reflux disease with esophagitis; K76.6 Portal hypertension; K31.89 Other diseases of stomach and duodenum; K29.80 Duodenitis without bleeding; K44.9 Diaphragmatic hernia without obstruction or gangrene; K74.60 Unspecified cirrhosis of liver; L29.9 Pruritus, unspecified; R16.1 Splenomegaly, not elsewhere classified; Z86.010 Personal history of colon polyps; D69.6 Thrombocytopenia, unspecified